=== PATIENT | male | born 1950 | race Caucasian/White ===

== ENCOUNTER 2020-05-21 15:58 | Outpatient (CLI) | payer MEDICARE ==
[2020-05-25] MEDS ORDERED: OMEP-110 PO (15:58)
== END 2020-05-21 23:59 | disposition home or self-care (01) ==
LOC: STAR 15:58
PROVIDERS: ATTEND Anesthesiology
DX: Z01.818 Encounter for other preprocedural examination (principal); Z11.59 Encounter for screening for other viral diseases
CPT/HCPCS: 36415; 87635

== ENCOUNTER 2020-05-26 05:34 | Day surgery (SDC) | payer MEDICARE ==
[2020-05-25 16:44] LABS: BASOPHILS # (AUTO) 0.05 x10^3/uL (0-0.1); BASOPHILS % (AUTO) 1 % (0-1); EOSINOPHILS # (AUTO) 0.13 x10^3/uL (0-0.4); EOSINOPHILS % (AUTO) 2 % (1-7); LYMPHOCYTES # (AUTO) 1.68 x10^3/uL (1-3.4); LYMPHOCYTES % (AUTO) 23 % (22-44); MD NO; MEAN CORPUSCULAR HEMOGLOBIN 29.7 pg (27.5-34.5); MEAN CORPUSCULAR HGB CONC 32.9 g/dL (33.2-36.2); MEAN CORPUSCULAR VOLUME 90.2 fL (81-97); MEAN PLATELET VOLUME 9.5 fL (7.4-10.4); MONOCYTES # (AUTO) 0.46 x10^3/uL (0.2-0.8); MONOCYTES % (AUTO) 6 % (2-9); NEUTROPHILS # (AUTO) 5.04 x10^3/uL (1.8-6.8); NEUTROPHILS % (AUTO) 69 % (42-75); PLATELET COUNT 172 x10^3/uL (130-400); RED BLOOD COUNT 5.07 x10^6/uL (4.38-5.82); RED CELL DISTRIBUTION WIDTH 15.1 % (9.4-14.8)
[2020-05-25 16:56] LABS: ALBUMIN 3.7 g/dL (3.4-5.0); ANION GAP 4 mmol/L (5-15); CHLORIDE 112 mmol/L (98-107)
[2020-05-25 17:02] LABS: ALANINE AMINOTRANSFERASE 21 U/L (12-78); ALKALINE PHOSPHATASE 90 U/L (45-117); BILIRUBIN,TOTAL 0.6 mg/dL (0.2-1.0); CREATININE 1.33 mg/dL (0.7-1.3); TOTAL PROTEIN 6.9 g/dL (6.4-8.2)
[2020-05-25 17:10] LABS: INTERNATIONAL NORMALIZED RATIO 1.05 (0.93-1.1); PROTHROMBIN TIME 10.8 Seconds (9.6-11.5)
[~2020-05-26] VITALS: Ht 190.5 cm; Wt 99.0 kg
[~2020-05-26 05:34] MED LIST: OMEP-110 PO
[2020-05-26] MEDS ORDERED: LACTATED RINGERS 1,000 ML IV SCH (06:03)
[2020-05-26 06:06] VITALS: BP 130/78
[2020-05-26] MEDS ORDERED: TRANEXAMIC ACID 100 MG/ML, 10ML ONE ×2 (06:16)
[2020-05-26] MEDS ORDERED: KETOROLAC 60 MG/2 ML ONE (06:16)
[2020-05-26] MEDS ORDERED: ROPIvacaine/PF 0.5%, 30 ML ONE (06:16)
[2020-05-26] MEDS ORDERED: VANCOMYCIN 1,000 MG ONE (06:16)
[2020-05-26] MEDS ORDERED: ROPIvacaine/PF 0.5%, 20 ML ONE (06:16)
[2020-05-26] MEDS ORDERED: SODIUM CHLORIDE 0.9% 50 ML ONE (06:17)
[2020-05-26] MEDS ORDERED: NS + 20MEQ KCL 1,000 ML IV SCH (06:17)
[2020-05-26] MEDS ORDERED: EPINEPHRINE 1 MG/ML, 1ML ONE (06:17)
[2020-05-26] MEDS ORDERED: MAGNESIUM HYDROXIDE 8%, 30ML UDC PO PRN (06:30)
[2020-05-26] MEDS ORDERED: GABAPENTIN 300 MG CAPSULE PO ONE (06:30)
[2020-05-26] MEDS ORDERED: ONDANSETRON 4 MG TABLET PO PRN (06:30)
[2020-05-26] MEDS ORDERED: OXYcodone IR 5MG TABLET PO PRN (06:30)
[2020-05-26] MEDS ORDERED: ACETAMINOPHEN 500 MG TABLET PO ONE (06:30)
[2020-05-26] MEDS ORDERED: ZOLPIDEM 5MG TABLET PO PRN (06:30)
[2020-05-26] MEDS ORDERED: DIPHENHYDRAMINE 50 MG CAPSULE PO PRN (06:30)
[2020-05-26] MEDS ORDERED: SENNA/DOCUSATE TABLET PO PRN (06:30)
[2020-05-26] MEDS ORDERED: BISACODYL 10 MG SUPP PR PRN (06:30)
[2020-05-26] MEDS ORDERED: HYDROcodone/APAP 5/325 TABLET PO PRN (06:30)
[2020-05-26] MEDS: CEFAZOLIN PMX 2GM/50ML 50 ML IVPB SCH ×2 (06:30→15:06)
[2020-05-26] MEDS ORDERED: ONDANSETRON 2MG/ML, 2ML IV PRN (06:30)
[2020-05-26] MEDS ORDERED: ACETAMINOPHEN 650 MG/20.3 ML UDC PO PRN (06:30)
[2020-05-26] MEDS ORDERED: CHLORHEXIDINE 15 ML UDC MM ONE (06:30)
[2020-05-26] MEDS ORDERED: FENTANYL PF 250 MCG/5ML ONE (06:36)
[2020-05-26] MEDS ORDERED: MIDAZOLAM 1 MG/ML, 2ML ONE (06:36)
[2020-05-26] MEDS ORDERED: LIDOCAINE PF 2%, 5ML ONE (06:50)
[2020-05-26] MEDS ORDERED: hydrALAzine 20 MG/ML, 1ML IV PRN (07:00)
[2020-05-26] MEDS ORDERED: HYDROmorphone 1 MG/ML, 1ML INJ IVPush PRN (07:00)
[2020-05-26] MEDS ORDERED: ONDANSETRON 2MG/ML, 2ML IVPush PRN (07:00)
[2020-05-26] MEDS ORDERED: MEPERIDINE/PF 25MG/0.5ML IVPush PRN (07:00)
[2020-05-26] MEDS ORDERED: LABETALOL 5MG/ML, 20ML IV PRN (07:00)
[2020-05-26] MEDS ORDERED: PROMETHAZINE 25 MG/ML, 1ML IVPush PRN (07:00)
[2020-05-26] MEDS ORDERED: EPHEDRINE 50 MG/ML, 1ML IVPush PRN (07:00)
[2020-05-26] MEDS ORDERED: OXYcodone 5 MG/5 ML ORAL.SOL UDC PO PRN (07:00)
[2020-05-26] MEDS ORDERED: EPHEDRINE 50 MG/ML, 1ML ONE ×2 (07:12)
[2020-05-26] MEDS ORDERED: DEXAMETHASONE 4 MG/ML, 1ML ONE (07:40)
[2020-05-26] MEDS ORDERED: PROPOFOL 10 MG/ML, 20ML ONE (07:40)
[2020-05-26] MEDS ORDERED: ONDANSETRON 2MG/ML, 2ML ONE (07:40)
[2020-05-26] MEDS ORDERED: CEFAZOLIN 1,000 MG ONE (07:40)
[2020-05-26] MEDS ORDERED: GLYCOPYRROLATE 0.2MG/1ML, 5ML ONE (07:40)
[2020-05-26] MEDS ORDERED: SUCCINYLCHOLINE 20 MG/ML, 10ML ONE (07:40)
[2020-05-26] MEDS ORDERED: FENTANYL PF 100 MCG/2ML ONE (08:24)
[2020-05-26] MEDS ORDERED: OXYcodone 5 MG/5 ML ORAL.SOL UDC ONE ×2 (08:24)
[2020-05-26] MEDS: FENTANYL PF 100 MCG/2ML IV PRN ×2 (08:28→08:39)
[2020-05-26] MEDS ORDERED: OMEPRAZOLE 20 MG CAPSULE.DR PO SCH (09:00)
[2020-05-26] MEDS ORDERED: DOCUSATE 100 MG CAPSULE PO SCH (09:00)
[2020-05-26 12:30] VITALS: BP 119/65
[2020-05-26] MEDS ORDERED: ASPIRIN 81 MG TABLET EC PO SCH (18:00)
[2020-05-27] MEDS ORDERED: DEXAMETHASONE 4 MG/ML, 1ML IVPush SCH (06:00)
== END 2020-05-26 16:45 | disposition home or self-care (01) ==
LOC: OUT 05:34 → 4NE 09:06 → OUT 16:45
PROVIDERS: ATTEND Orthopaedic Surgery
DX: M16.11 Unilateral primary osteoarthritis, right hip (principal); M25.751 Osteophyte, right hip; K21.9 Gastro-esophageal reflux disease without esophagitis; Z79.01 Long term (current) use of anticoagulants; Z79.899 Other long term (current) drug therapy; Z87.891 Personal history of nicotine dependence; Z98.1 Arthrodesis status; Z98.52 Vasectomy status; Z98.890 Other specified postprocedural states
CPT/HCPCS: 27130; 36415; 72170; 73501; 76000; 80053; 83036; 85025; 85610; 85730; 87081; 87147; 93005; 97110; 97161; C1713; C1776; J0171; J0330; J0690; J1100; J1885; J2250; J2405; J2704; J2795; J3010; J3370; J3480; J7120; G0378